=== PATIENT | female | born 1955 | race Caucasian/White ===

== ENCOUNTER 2023-03-31 21:42 | Emergency (ER) | payer SELFPAY ==
[~2023-03-31] VITALS: Ht 170.2 cm; Wt 89.8 kg
[2023-03-31] MEDS ORDERED: BENZONATATE 100 MG CAPSULE PO PRN (22:30)
[2023-03-31] MEDS ORDERED: BENZONATATE 100 MG CAPSULE PO ONE (22:37)
[2023-03-31] MEDS ORDERED: PROM118S5 PO (23:24)
[2023-03-31] MEDS ORDERED: AMOX-430 PO (23:24)
[2023-03-31 23:35] VITALS: BP 143/95; TEMP 98.8; O2SAT 96
== END 2023-03-31 23:35 | disposition home or self-care (01) ==
LOC: ER 21:50
DX: J32.9 Chronic sinusitis, unspecified (principal); I10 Essential (primary) hypertension; E03.9 Hypothyroidism, unspecified
CPT/HCPCS: 71045-TC